=== PATIENT | male | born 1965 | race Caucasian/White ===

== ENCOUNTER 2020-06-08 12:40 | Emergency (ER) | payer OTHER ==
[~2020-06-08] VITALS: Ht 167.6 cm; Wt 92.5 kg
[2020-06-08] MEDS ORDERED: OCUSOFT LID SC1 EAC1 TOP (15:13)
== END 2020-06-08 16:14 | disposition home or self-care (01) ==
LOC: ER 12:40
DX: T15.12XA Foreign body in conjunctival sac, left eye, initial encounter (principal); T15.11XA Foreign body in conjunctival sac, right eye, initial encounter; H57.13 Ocular pain, bilateral; W45.8XXA Other foreign body or object entering through skin, initial encounter; Y93.89 Activity, other specified; Y92.89 Other specified places as the place of occurrence of the external cause; Y99.8 Other external cause status